=== PATIENT | female | born 1965 | race Caucasian/White ===

== ENCOUNTER → 2023-11-30 07:48 | Outpatient (REF) | payer OTHER, SELFPAY | LOC: RAD 07:48 | PROVIDERS: ATTENDING PHYSICIAN Family Medicine | DX: E04.1 Nontoxic single thyroid nodule (principal) | CPT/HCPCS: 76536 ==

== ENCOUNTER → 2023-12-09 08:10 | Outpatient (REF) | payer OTHER, SELFPAY | LOC: DHCBS HW 08:10 | PROVIDERS: ATTENDING PHYSICIAN Internal Medicine Cardiovascular Disease; FAMILY PHYSICIAN Family Medicine | DX: R06.09 Other forms of dyspnea (principal); R07.2 Precordial pain | CPT/HCPCS: 93306 ==

== ENCOUNTER → 2023-12-10 13:19 | Outpatient (REF) | payer OTHER, SELFPAY | LOC: RCS 13:19 | PROVIDERS: ATTENDING PHYSICIAN Internal Medicine Cardiovascular Disease; FAMILY PHYSICIAN Family Medicine | DX: R06.09 Other forms of dyspnea (principal); R07.2 Precordial pain | CPT/HCPCS: 93017; 93350 ==

== ENCOUNTER → 2024-01-27 06:54 | Outpatient (REF) | payer OTHER, SELFPAY | LOC: WDC 06:54 | PROVIDERS: ATTENDING PHYSICIAN Obstetrics & Gynecology; FAMILY PHYSICIAN Family Medicine | DX: Z12.31 Encounter for screening mammogram for malignant neoplasm of breast (principal); I82.90 Acute embolism and thrombosis of unspecified vein | CPT/HCPCS: 77063; 77067; 93971 ==